=== PATIENT | male | born 1950 | race Caucasian/White ===

== ENCOUNTER 2018-08-17 06:57 | Day surgery (SDC) | payer MEDICARE ==
[~2018-08-17] VITALS: Ht 185.4 cm; Wt 90.0 kg
[2018-08-17 07:33] VITALS: BP 117/85; PULSE 57; TEMP 97.8
[2018-08-17 08:45] VITALS: BP 100/74; PULSE 56; TEMP 97.4
--- NOTE | 2018-08-17 08:45 | NUR ---
Patient arrives back to [facility] drowsy, denies pain or nausea. Patient ambulated from cart to chair with stand by assist and without any complications or difficulties. Patient monitor applied, vitals stable. Spouse at chair side.
--- NOTE | 2018-08-17 08:50 | NUR ---
Dr Farah into see patient to go over results at this time.
[2018-08-17 09:00] VITALS: BP 104/70; PULSE 52
--- NOTE | 2018-08-17 09:00 | NUR ---
Patient sleeping comfortably in chair at this time, vital stable.
[2018-08-17 09:15] VITALS: BP 110/72; PULSE 55
--- NOTE | 2018-08-17 09:25 | NUR ---
Dismissal instructions gone over with patient and patient's spouse. Both verbalize understanding and all questions answered.
--- NOTE | 2018-08-17 09:30 | NUR ---
Patient dismissed to private vehicle via wheelchair at patient enterance. Patient spouse is driving. Patient leaves thanking staff for services.
== END 2018-08-17 09:30 | disposition home or self-care (01) ==
LOC: SDCO 06:57
DX: Z12.11 Encounter for screening for malignant neoplasm of colon (principal); Z86.010 Personal history of colon polyps; K63.5 Polyp of colon; Z90.49 Acquired absence of other specified parts of digestive tract; Z80.3 Family history of malignant neoplasm of breast; Z80.42 Family history of malignant neoplasm of prostate; Z82.49 Family history of ischemic heart disease and other diseases of the circulatory system
CPT/HCPCS: J2250; J3010; J7030